=== PATIENT | female | born 1985 | race Caucasian/White ===

== ENCOUNTER 2016-10-09 23:30 | Inpatient (IN) ==
[2016-10-10] LABS: URINE SOURCE VOIDED
[2016-10-10 00:06] LABS: BILIRUBIN URINE NEGATIVE (NEGATIVE); BLOOD URINE 2+ (NEGATIVE); CLARITY HAZY (CLEAR); COLOR YELLOW; GLUCOSE URINE NEGATIVE (NEGATIVE); LEUKOCYTES URINE 1+ (NEGATIVE); NITRITE URINE NEGATIVE (NEGATIVE); PROTEIN URINE NEGATIVE (NEGATIVE); UROBILINOGEN URINE 1+(1 mg/dL)
[2016-10-10] MEDS ORDERED: STADOL IV ONE (00:13)
[2016-10-10] MEDS ORDERED: KEFZOL 1 GM/D5W 50 ML IV PRN (01:20)
[2016-10-10] MEDS ORDERED: REGLAN IV ONE (01:22)
[2016-10-10] MEDS ORDERED: SODIUM CHLORIDE 0.9% INJ ONE (01:22)
[2016-10-10] MEDS ORDERED: PEPCID IV ONE (01:22)
[2016-10-10] MEDS ORDERED: BICITRA PO ONE (01:22)
[2016-10-10] MEDS ORDERED: LR 1,000 ML IV SCH (01:30)
[2016-10-10 01:32] LABS: MANUAL DIFF NEEDED? NO
[2016-10-10 01:46] LABS: BASO% 0.2 % (0.0-0.8); EOS# 0.06 X1000 (0.0-0.7); EOS% 0.6 % (0.0-10.0); HEMATOCRIT 31.1 % (37.0-47.0); IMM GRAN# 0.07 X1000 (0.0-0.04); IMM GRAN% 0.8 % (0.0-0.5); LYMPH# 1.92 X1000 (1.2-3.4); LYMPH% 20.6 % (20.5-51.1); MCH 26.3 PG (27-31); MCHC 32.2 g/dL (33-37); MCV 81.8 FL (81-99); MONO# 0.48 X1000 (0.11-0.59); MONO% 5.1 % (1.7-9.3); MPV 9.7 FL (7.4-10.4); NEUT% 72.7 % (42.2-75.2); PLT 191 X1000 (130-400)
[2016-10-10] MEDS ORDERED: PITOCIN ONE ×3 (02:01→16:29)
[2016-10-10] MEDS ORDERED: FENTANYL ONE (02:01)
[2016-10-10] MEDS ORDERED: DURAMORPH ONE (02:02)
[2016-10-10 02:14] LABS: UR AMPHETAMINES QUAL NONE DETECTED (NONE DETECT); UR BARBITUATES QUAL NONE DETECTED (NONE DETECT); UR BENZODIAZEPIN QUAL NONE DETECTED (NONE DETECT); UR CANNABINOIDS QUAL NONE DETECTED (NONE DETECT); UR COCAINE QUAL NONE DETECTED (NONE DETECT); UR MDMA QUAL NONE DETECTED (NONE DETECT); UR METHADONE QUAL NONE DETECTED (NONE DETECT); UR METHAMPHETAMINE QUAL NONE DETECTED (NONE DETECT); UR OPIATES QUAL NONE DETECTED (NONE DETECT); UR OXYCODONE QUAL NONE DETECTED (NONE DETECT); UR PCP QUAL NONE DETECTED (NONE DETECT); UR TCA QUAL NONE DETECTED (NONE DETECT)
[2016-10-10] MEDS ORDERED: DEMEROL IM PRN (03:00)
[2016-10-10] MEDS ORDERED: M-M-R II VACCINE SUBQ ONE (03:00)
[2016-10-10] MEDS ORDERED: BOOSTRIX VACCINE IM ONE (03:00)
[2016-10-10] MEDS ORDERED: HYDROXYZINE PO PRN (03:00)
[2016-10-10] MEDS ORDERED: DULCOLAX PR PRN (03:00)
[2016-10-10] MEDS ORDERED: PITOCIN 10 UNITS/LR 1,000 ML IV SCH (03:00)
[2016-10-10] MEDS ORDERED: MYLICON PO PRN (03:00)
[2016-10-10] MEDS ORDERED: HYDROXYZINE IM PRN (03:00)
[2016-10-10] MEDS ORDERED: PITOCIN 20 UNITS/LR 1,000 ML IV ONE (03:00)
[2016-10-10] MEDS ORDERED: AMBIEN PO PRN (03:00)
[2016-10-10] MEDS ORDERED: CYTOTEC PO PRN (03:00)
[2016-10-10] MEDS ORDERED: DEMEROL PO PRN ×2 (03:00)
[2016-10-10] MEDS ORDERED: PHENERGAN IM PRN (03:00)
[2016-10-10] MEDS ORDERED: PITOCIN IM PRN (03:00)
[2016-10-10] MEDS ORDERED: NORCO-5 PO PRN (03:00)
[2016-10-10] MEDS ORDERED: EPHEDRINE ONE (03:15)
[2016-10-10] MEDS ORDERED: TORADOL ONE (03:16)
[2016-10-10] MEDS ORDERED: PHENERGAN ONE (03:17)
[2016-10-10] MEDS ORDERED: DILAUDID IV PRN (03:49)
[2016-10-10] MEDS ORDERED: ZOFRAN IV PRN ×2 (03:49)
[2016-10-10] MEDS ORDERED: BENADRYL IV PRN (03:49)
[2016-10-10] MEDS ORDERED: NARCAN INJ PRN (03:49)
[2016-10-10] MEDS ORDERED: ZOFRAN ODT PO PRN (03:49)
[2016-10-10] MEDS: NORCO-10 PO PRN ×5 (07:56→20:55)
[2016-10-10] MEDS: MYLICON PO SCH ×5 (07:56→20:55)
[2016-10-10] MEDS: PERICOLACE PO SCH (20:54)
[2016-10-11] MEDS: NORCO-10 PO PRN ×8 (00:39→23:01)
[2016-10-11] MEDS ORDERED: LR 1,000 ML IV SCH (03:00)
[2016-10-11 06:42] LABS: HEMATOCRIT 23.4 % (37.0-47.0); HEMOGLOBIN 7.1 g/dL (12.0-16.0); MCH 25.3 PG (27-31); MCHC 30.3 g/dL (33-37); MCV 83.3 FL (81-99); MPV 9.6 FL (7.4-10.4); RBC 2.81 XMIL (4.2-5.4)
[2016-10-11] MEDS: MYLICON PO SCH ×5 (09:02→20:27)
[2016-10-11] MEDS ORDERED: NEOSPORIN OINTMENT PACKET TOP ONE (12:29)
[2016-10-11] MEDS: PERICOLACE PO SCH (20:27)
[2016-10-12] MEDS: NORCO-10 PO PRN ×3 (02:04→08:08)
[2016-10-12 08:07] VITALS: BP 117/68
[2016-10-12] MEDS: MYLICON PO SCH (08:08)
--- NOTE | 2016-10-12 18:25 | DISCHARGE SUMMARY ---
ADMISSION DATE: 10/09/2016 DISCHARGE DATE: 10/12/2016 ADMITTING DIAGNOSES: 1. 38-1/2-week , in labor. 2. Uterine fibroids felt to be impending delivery. 3. Desires sterilization. PRINCIPAL DIAGNOSES: 1. 38-1/2-week , in labor. 2. Uterine fibroids felt to be impending delivery. 3. Desires sterilization. PRINCIPAL PROCEDURE: Primary and bilateral fimbriectomy. SUMMARY: Ailyn Wallace is a 31-year-old, 4, para 2, at 38 weeks gestation. She presented to Labor and Delivery in active labor. She was 3 cm dilated. She had been scheduled for a delivery due to a 10 cm fibroid that was felt to be impending vaginal delivery. She also desired tubal sterilization. She, therefore, underwent a primary low transverse section and bilateral fimbriectomy by Dr. Hurtado. A male infant who weighed 8 pounds 1 ounce with Apgars of 9 at 1 minute and 10 at 5 minutes was delivered and a bilateral fimbriectomy was performed. There were no intraoperative complications. Following delivery the patient has done well. She has remained afebrile. All vital signs are stable. She did have an admission hemoglobin and hematocrit of 10/31.1 with discharge hemoglobin and hematocrit being 7.1/23.4. On the day of discharge cardiac and pulmonary examinations normal. Bowel and bladder functions was normal. Her skin incision was clean and dry. She was having no signs of infection. Mrs. Wallace will be discharged today. We will see her back in the office in a week. Routine discharge instructions, activity limitations, and precautions were given. She has been given a prescription for Percocet 10 for pain. She states an allergy to Toradol but it is only a mild rash so we will try Motrin to see if it will help the pain also. We will see her next week in the office. She will call sooner if needed.
--- NOTE | 2016-10-22 15:01 | OPERATIVE NOTE ---
PROCEDURE DATE: PREOPERATIVE DIAGNOSES: 1. Intrauterine at 38 weeks and 2 days. 2. Active labor. 3. History of uterine fibroids, requesting primary abdominal delivery. POSTOPERATIVE DIAGNOSES: 1. Intrauterine at 38 weeks and 2 days. 2. Active labor. 3. History of uterine fibroids, requesting primary abdominal delivery. PROCEDURE PERFORMED: SURGEON: Leeann Hurtado MD GRAILS WEB APPLICATION DEVELOPER: None. ANESTHESIA: Spinal. ESTIMATED BLOOD LOSS: 800 mL. COMPLICATIONS: None. COUNTS: Correct x2. FINDINGS: Viable male infant, weighing 8 pounds 1 ounce. Grossly normal-appearing bilateral fallopian tubes and ovaries. Myometrial fibroid, creating enlarged uterus. INDICATIONS FOR PROCEDURE: The patient is a 31-year-old, 4, para 2-0-1-2, with intrauterine at 38 weeks 2 days. The patient presented to labor and delivery complaining of regular contractions. The patient was noted to have cervical dilation to 7 cm, so diagnosed in active labor. Patient with a history of uterine fibroids and requesting primary section, which she was counseled on in clinic. Risks, benefits, and alternatives were discussed with the patient and she desires to proceed. PROCEDURE IN DETAIL: After proper informed consent was obtained, the patient was taken to the operating room and placed in dorsal supine position with adequate spinal anesthesia. The abdomen was prepped and draped in normal sterile fashion for abdominal surgery. After a proper time-out was performed, a low transverse incision was made on the skin using a scalpel. This was carried down to the underlying fascia which was scored in the midline. The fascial incision was extended laterally and cephalic using Laura scissors. The inferior aspect of the fascial defect was grasped with a Jose A clamp and dissected off the underlying rectus abdominis muscle. Similar was carried out for the superior aspect of the fascial defect. The muscles were bluntly in the midline. The peritoneum was entered bluntly and stretched using the tobacco stripping machine operator's hand. A bladder blade was placed to protect the bladder. A low transverse incision was made on the uterus. This was stretched using the tobacco stripping machine operator's hand. The infant was delivered in the vertex presentation. The cord was doubly clamped and cut and the was handed off to the awaiting pediatric staff. The placenta was then delivered via fundal massage. The uterus was exteriorized and cleared free of all clot and debris. The hysterotomy was reapproximated using #1 chromic in a running, locking fashion with hemostasis noted. Attention was then turned to bilateral tubal ligation. The right fallopian tube was grasped with a Braddock clamp. The fimbria was elevated and fimbriectomy was performed after double suture ligating the tubal segment. Hemostasis was noted. Similar was carried out to the left fallopian tube with hemostasis noted. The uterus was returned to the abdomen. The hysterotomy was reinspected and noted to be hemostatic. The peritoneum was then reapproximated using #1 chromic in a running, continuous fashion. The muscles were inspected and noted to be hemostatic. The fascia was then reapproximated using #1 Vicryl in a running, continuous fashion. The subcutaneous tissue was made hemostatic using Bovie electrocautery and the subcutaneous tissue was reapproximated using 3-0 chromic in a running, continuous fashion. The skin was reapproximated using 4-0 Monocryl in a subcuticular fashion. The patient tolerated the procedure well and was transferred to recovery in stable condition.
== END 2016-10-12 12:05 | disposition home or self-care (01) | DRG 766 ==
LOC: P.OPLD 23:30 → P.LD 23:31 → P.OPLD 10-10 01:18 → P.LD 10-10 01:19 → P.WC 10-10 14:25
PROVIDERS: ADMIT Obstetrics & Gynecology; ATTEND Obstetrics & Gynecology
PROC: 0UB70ZZ Excision of Bilateral Fallopian Tubes, Open Approach (ICD-10-PCS; 2016-10-10)
PROC: 10D00Z1 Extraction of Products of Conception, Low, Open Approach (ICD-10-PCS; principal; 2016-10-10 02:00)
DX: O75.82 Onset (spontaneous) of labor after 37 completed weeks of gestation but before 39 completed weeks gestation, with delivery by (planned) cesarean section (principal); D25.1 Intramural leiomyoma of uterus; Z37.0 Single live birth; O65.5 Obstructed labor due to abnormality of maternal pelvic organs; O34.13 Maternal care for benign tumor of corpus uteri, third trimester; Z3A.38 38 weeks gestation of pregnancy; Z30.2 Encounter for sterilization
CPT/HCPCS: 59025; 80305; 81003; 85025; 85027; 86592; 86850; 86900; 86901; J0595; J0690; J1170; J1885; J2274; J2405; J2550; J2590; J2765; J3010; J7120; S0028

== ENCOUNTER 2016-10-21 17:08 | Emergency (ER) ==
[2016-10-21 17:15] VITALS: BP 132/72
--- NOTE | 2016-10-21 18:17 | PROVIDER DOCUMENTATION ---
HPI-General Adult <Marcos Campos Musa - Last Filed: 10/21/16 18:18> - General Source: patient - History of Present Illness -Gen Adult Nature of Presenting Problems: 31 year old F presents to the ED with a cc of pain secondary to 11 days ago. PT states that she called her OBGYN and she was told to take Motrin and Tylenol. PT states that she is still having a lot of pain. Location of Pain/Injury: reports: abdomen Pain Radiation: reports: no radiation Quality of Pain: reports: aching Severity: reports: mild Onset/Duration: reports: other (11 days) Timing: reports: still present Modifying Factors: improves with: nothing Associated Symptoms: reports: denies symptoms Similar Symptoms Previously?: No Recently seen or treated by another doctor?: No <Christi Perrin - Last Filed: 10/21/16 18:29> - General Chief Complaint: Post Op Complaint Stated Complaint: POST OP COMPLAINT/ Time Seen by Provider: 10/21/16 18:10 Allergies/Adverse Reactions: Patient Allergies Allergy/AdvReac Type Severity Reaction Status Date / Time ketorolac tromethamine * Allergy Severe RASH Verified 09/19/16 10:47 [From Toradol] Latex, Natural Rubber Allergy Severe RASH Verified 09/19/16 10:48 ibuprofen Allergy HIVES Verified 10/10/16 19:06 Home Medications: Home Medication List Medication Instructions Recorded Confirmed Last Taken Type Omeprazole [Prilosec] 20 mg PO DAILY 09/19/16 10/10/16 10/07/16 07:30 History Hydrocodone/Acetaminophen [Retsof 1 cap PO Q4H PRN 10/08/16 10/10/16 2 Days Ago History 5-325 Tablet] Ibuprofen [Motrin] 800 mg PO Q8H PRN PRN #30 tablet 10/12/16 Unknown Rx Oxycodone HCl/Acetaminophen 1 each PO Q4H PRN #30 tablet 10/12/16 Unknown Rx [Percocet 10-325 mg Tablet] Simethicone Chew [Mylicon] 80 mg PO PC + HS #60 tablet 10/12/16 Unknown Rx Oxycodone HCl/Acetaminophen 1 each PO Q4H PRN #12 tablet 10/21/16 Unknown Rx [Percocet 5-325 mg Tablet] Review of Systems - Adult - REVIEW OF SYSTEMS - ADULT Constitutional: denies: chills, fever Eyes: reports: no symptoms reported Ears, Nose, Mouth & Throat: reports: no symptoms reported Cardiovascular: reports: no symptoms reported Respiratory: reports: no symptoms reported Gastrointestinal: reports: abdominal pain. denies: nausea, vomiting Genitourinary: denies: dysuria, discharge, hematuria Musculoskeletal: denies: muscle aches, muscle weakness Integumentary: reports: no symptoms reported Neurological: reports: no symptoms reported Psychiatric: reports: no symptoms reported Endocrine: reports: no symptoms reported Hematologic/Lymphatic: reports: no symptoms reported Allergic/Immunologic: reports: no symptoms reported All Other Systems: Reviewed and Negative <Christi Perrin - Last Filed: 10/21/16 18:29> Past History - Adult - PAST MEDICAL HISTORY-ADULT Review of Records: reports: Nursing Assessment Review, Medications Reviewed Major Childhood Illnesses: reports: denies history Cardiovascular: reports: denies history Respiratory: reports: denies history Gastrointestinal: reports: GERD Obstetrical/Gynecological: reports: denies history Genitourinary: reports: denies history Musculoskeletal: reports: denies history Neurological: reports: denies history Endocrine/Immune: reports: denies history Other Conditions: reports: denies history - PRIOR SURGERIES/PROCEDURES Surgical/Procedure History: reports: cholecystectomy, other (laproscopic gallbladder removal, D&C) - IMMUNIZATION STATUS Childhood Immunizations: See Nurse Assessment Flu Vaccine: See Nurse Assessment - FAMILY HISTORY Family History: reviewed, not pertinent - SOCIAL HISTORY Smoking: non-smoker Substance Use: none/never Alcohol Use Frequency: occasionally <Christi Perrin - Last Filed: 10/21/16 18:29> Physical Exam-General - PHYSICAL EXAM-ADULT Initial Vital Signs Reviewed: Yes - CONSTITUTIONAL General Appearance: appears well, alert, no apparent distress - RESPIRATORY Respiratory: chest non-tender, lungs clear, normal breath sounds - CARDIOVASCULAR Cardiovascular: normal peripheral pulses, regular rate, rhythm, no edema - GASTROINTESTINAL (ABDOMEN) Abdominal Exam: non tender, tenderness (lower ABD), other (healing surgical wound to lower ABD) - MUSCULOSKELETAL Extremity: normal inspection - SKIN Integumentary: normal color, normal turgor, warm/dry - PSYCHIATRIC Psych/Mental Status: normal mood/affect, normal thought content, normal thought process, oriented x 3 <Christi Perrin - Last Filed: 10/21/16 18:29> Progress - PLAN OF CARE/RESULTS Progress/Plan/Lab Results: plan of care: medications Orders Category Date Time Status Oxycodone/APAP 5 mg/325 mg [Percocet-5] Med 10/21/16 18:20 Discontinued 2 each PO NOW ONE Vital Signs - 24 hr 10/21/16 17:12 Temperature 98 F Pulse Rate 79 Respiratory 18 Rate Blood Pressure 132/72 O2 Sat by Pulse 98 Oximetry Pt given results and will be d/c home w/ rx to follow up with PCP. Pt verbally understood instructions. PT remained clinically stable throughout the course of the ED stay and will return if symptoms worsen. <Christi Perrin - Last Filed: 10/21/16 18:29> Departure - Departure Time of Disposition Order: 06:20 Certified Medical Emergency: Emergent <Marcos Campos - Last Filed: 10/21/16 18:18> <Christi Perrin - Last Filed: 10/21/16 18:29> - Departure DIAGNOSIS: Postoperative abdominal pain Disposition: HOME 01 Condition: Stable Additional Instructions: followup with your OB doctor tomorrow for further instructions Prescriptions: Oxycodone HCl/Acetaminophen [Percocet 5-325 mg Tablet] 1 each PO Q4H PRN #12 tablet PRN Reason: Pain Referrals: Enrique Bone MD [STAFF PHYSICIAN] - Forms: Return to School/Parent Work Instructions: Acetaminophen; Oxycodone tablets, Abdominal Pain, Adult, Easy-to- Read Attestation - Scribe Verification/Attestation Scribe:: Christi Perrin Acting as Scribe for:: Marcos Campos Scribe documention review:: This chart was documented by a scribe and accurately reflects the service the provider performed and the decisions made by the provider. <Christi Perrin - Last Filed: 10/21/16 18:29> Physician Attestation - Physician Attestation I, the provider, attest to the following statement:: Marcos Campos Physician documentation Attestation:: This documentation recorded by the scribe accurately reflects the service I personally performed and the decisions made by me. <Christi Perrin - Last Filed: 10/21/16 18:29>
[2016-10-21] MEDS ORDERED: PERCOCET-5 PO ONE (18:20)
== END 2016-10-21 18:40 | disposition home or self-care (01) ==
LOC: P.ED 17:08
DX: O90.89 Other complications of the puerperium, not elsewhere classified (principal); G89.18 Other acute postprocedural pain; R10.9 Unspecified abdominal pain; R10.819 Abdominal tenderness, unspecified site; K21.9 Gastro-esophageal reflux disease without esophagitis; Z98.890 Other specified postprocedural states
CPT/HCPCS: 99282

== ENCOUNTER 2016-11-02 22:31 | Emergency (ER) ==
[2016-11-02] MEDS ORDERED: NORCO-7.5 PO ONE (23:15)
[2016-11-02] MEDS ORDERED: CLINDAMYCIN IM ONE (23:15)
--- NOTE | 2016-11-02 23:15 | PROVIDER DOCUMENTATION ---
HPI-Rash/Wound/ReCheck <Marcos Hylton - Last Filed: 11/02/16 23:36> - General Source: patient - History of Present Illness-Dermatology Location: reports: lower extremity (LEFT INNER GROIN) Quality: reports: burning, painful Severity: reports: moderate Onset/Duration: reports: 2 days ago Timing: reports: still present Context/Associated Symptoms: reports: spider bite (POSS), unknown bite/sting, abscess, tender area Identifiable cause?: No Exposure: reports: unknown cause Locality of Occurance: Home Similar Symptoms Previously?: No Recently seen or treated by another doctor?: No <Ariana Baird - Last Filed: 11/03/16 00:36> - General Chief Complaint: Insect Bite/Sting Stated Complaint: INSECT BITE/STING Time Seen by Provider: 11/02/16 22:51 Allergies/Adverse Reactions: Allergies Allergy/AdvReac Type Severity Reaction Status Date / Time ketorolac tromethamine * Allergy Severe RASH Verified 11/02/16 22:46 [From Toradol] Latex, Natural Rubber Allergy Severe RASH Verified 11/02/16 22:46 ibuprofen Allergy HIVES Verified 11/02/16 22:46 Home Medications: Home Medication List Medication Instructions Recorded Confirmed Last Taken Type Sulfamethoxazole/Trimethoprim 1 each PO BID #20 tablet 11/02/16 Unknown Rx [Bactrim Ds Tablet] Tramadol [Ultram] 50 mg PO Q8HR #10 tablet 11/02/16 Unknown Rx - History of Present Illness-Dermatology Nature of Presenting Problem: PT IS A 31YOF PRESENTING TO THE ED C/O ABSCESS ON INNER LEFT GROIN. PT STATES SHE THOUGHT SHE MAY HAVE BEEN BITTEN BY A SPIDER. THE ABSCESS CAME UP 2 DAYS AGO , NO REDNESS OR HEAT TO TOUCH. PT STATES IT IS VERY PAINFUL BUT THE AREA IS A SOLID MASS UNDER THE SKIN AND IS NOT ABLE TO BE I&D AT THIS TIME. NO FEVER OR OTHER COMPLAINTS NOTED (Ariana Baird) Review of Systems - Adult - REVIEW OF SYSTEMS - ADULT Constitutional: reports: no symptoms reported Eyes: reports: no symptoms reported Ears, Nose, Mouth & Throat: reports: no symptoms reported Cardiovascular: reports: no symptoms reported Respiratory: reports: no symptoms reported Gastrointestinal: reports: no symptoms reported Genitourinary: reports: no symptoms reported Musculoskeletal: reports: no symptoms reported Integumentary: reports: see HPI, other (POSS ABSCESS LEFT INNER GROIN). denies : itching, rash Neurological: reports: no symptoms reported Psychiatric: reports: no symptoms reported Endocrine: reports: no symptoms reported Hematologic/Lymphatic: reports: no symptoms reported Allergic/Immunologic: reports: no symptoms reported All Other Systems: Reviewed and Negative <Ariana Baird - Last Filed: 11/03/16 00:36> Past History - Adult - PAST MEDICAL HISTORY-ADULT Major Childhood Illnesses: reports: denies history Cardiovascular: reports: denies history Respiratory: reports: denies history Gastrointestinal: reports: GERD Obstetrical/Gynecological: reports: denies history Genitourinary: reports: denies history Musculoskeletal: reports: denies history Neurological: reports: denies history Endocrine/Immune: reports: denies history Other Conditions: reports: denies history - PRIOR SURGERIES/PROCEDURES Surgical/Procedure History: reports: cholecystectomy, other (laproscopic gallbladder removal, D&C) - IMMUNIZATION STATUS Childhood Immunizations: See Nurse Assessment Flu Vaccine: See Nurse Assessment - FAMILY HISTORY Family History: reviewed, not pertinent <Marcos Hylton - Last Filed: 11/02/16 23:36> - PAST MEDICAL HISTORY-ADULT Review of Records: reports: Old Records Reviewed, Nursing Assessment Review, Medications Reviewed, Social history reviewed & non-contributory. Major Childhood Illnesses: reports: denies history Cardiovascular: reports: denies history Respiratory: reports: denies history Gastrointestinal: reports: denies history Obstetrical/Gynecological: reports: denies history Genitourinary: reports: denies history Musculoskeletal: reports: denies history Neurological: reports: denies history Endocrine/Immune: reports: denies history Other Conditions: reports: denies history - IMMUNIZATION STATUS Childhood Immunizations: See Nurse Assessment Flu Vaccine: See Nurse Assessment - FAMILY HISTORY Family History: reviewed, not pertinent - SOCIAL HISTORY Smoking: denies, non-smoker Substance Use: none/never, alcohol Alcohol Use Frequency: occasionally Number of drinks per typical drinking period:: 3-4 drinks Living Situation: family <Ariana Baird - Last Filed: 11/03/16 00:36> Physical Exam-General - PHYSICAL EXAM-ADULT Initial Vital Signs Reviewed: Yes - CONSTITUTIONAL General Appearance: appears well, alert, moderate distress, anxious - EYES Eyes: PERRL/EOMI, pink conjunctivae, fundi clear, no AV nicking - HEAD, EARS, NOSE, MOUTH & THROAT HENMT: normocephalic/atraumatic, moist mucous membranes, normal ENT inspection, TMs normal, pharynx normal - NECK Neck: non-tender, full range of motion, supple, normal inspection - RESPIRATORY Respiratory: chest non-tender, lungs clear, normal breath sounds, no pleuratic chest pain, no respiratory distress, no accessory muscle use - CARDIOVASCULAR Cardiovascular: normal peripheral pulses, regular rate, rhythm, no edema, no gallop, no JVD, no murmur - GASTROINTESTINAL (ABDOMEN) Abdominal Exam: normal bowel sounds, non tender, soft, no organomegaly, no pulsatile mass - LYMPHATIC Lymphatic: no adenopathy - MUSCULOSKELETAL Back Exam: normal inspection, no CVA tenderness, no vertebral tenderness Extremity: normal range of motion, non-tender, normal gait, normal inspection, no pedal edema, no calf tenderness, normal capillary refill, pelvis stable - SKIN Integumentary: normal color, normal turgor, warm/dry, tenderness (HARD ABSCESS UNDER SKIN ON INNER LEFT GROIN AREA) - NEUROLOGIC Neurologic: barrel assembly inspector II-XII nml as tested, grossly normal, no motor/sensory deficits - PSYCHIATRIC Psych/Mental Status: normal mood/affect, normal thought content, normal thought process, oriented x 3 <Ariana Baird - Last Filed: 11/03/16 00:36> Progress <Marcos Hylton - Last Filed: 11/02/16 23:36> <Ariana Baird - Last Filed: 11/03/16 00:36> - PLAN OF CARE/RESULTS Progress/Plan/Lab Results: Orders Category Date Time Status Clindamycin Med 11/02/16 23:15 Discontinued 600 mg IM NOW ONE Hydrocodone/APAP 7.5 mg/325 mg [[place]-7.5] Med 11/02/16 23:15 Discontinued 1 each PO NOW ONE Vital Signs - 24 hr 11/02/16 11/02/16 22:42 23:39 Temperature 98.3 F 98.5 F Pulse Rate 77 84 Respiratory 18 19 Rate Blood Pressure 106/60 110/71 O2 Sat by Pulse 98 98 Oximetry (Ariana Baird) Departure - Departure Time of Disposition Order: 23:13 Certified Medical Emergency: Emergent <Marcos Hylton - Last Filed: 11/02/16 23:36> - Departure Time of Disposition Order: 00:36 Certified Medical Emergency: Emergent <Ariana Baird - Last Filed: 11/03/16 00:36> - Departure DIAGNOSIS: Abscess Disposition: HOME 01 Condition: Stable Additional Instructions: ED Follow Up Instructions: You have been treated by a care provider in the Emergency Department. These instructions are being provided to you so you can have an understanding of how to care for yourself upon discharge. Upon discharge from the Emergency Department, you are responsible for making arrangements for follow-up care by a physician of your choice. Take all prescribed medications as directed. Return to the Emergency Department immediately for any new or worsening symptoms. You may call the Physician Referral phone number at [phone] to obtain a list of Physicians who are taking new patients. Prescriptions: Sulfamethoxazole/Trimethoprim [Bactrim Ds Tablet] 1 each PO BID #20 tablet Tramadol [Ultram] 50 mg PO Q8HR #10 tablet Referrals: Enrique Bone MD [STAFF PHYSICIAN] - None,PCP [Primary Care Provider] - Forms: Return to School/Parent Work Instructions: Abscess, [id number], Sulfamethoxazole; Trimethoprim, [id number] tablets Attestation - Physician/ BEATRIZ Attestation Patient care was provided by Advanced Practice Provider:: Yes Advanced Practice Provider:: Marcos Hylton Advanced Practice Provider documentation review:: The Mid-level provider documentation, treatment plan and medical decision making was reviewed by the physician who agrees with all treatment and medical decision making by the [facility]. <Marcos Hylton - Last Filed: 11/02/16 23:36> - Scribe Verification/Attestation Scribe:: Ariana Baird Acting as Scribe for:: Marcos Hylton Scribe documention review:: This chart was documented by a scribe and accurately reflects the service the provider performed and the decisions made by the provider. <Araina Baird - Last Filed: 11/03/16 00:36> Physician Attestation - Physician Attestation I, the provider, attest to the following statement:: Iftikhar Pryor Physician documentation Attestation:: This documentation recorded by the scribe accurately reflects the service I personally performed and the decisions made by me. <Ariana Baird - Last Filed: 11/03/16 00:36>
[2016-11-02 23:42] VITALS: BP 110/71
== END 2016-11-02 23:42 | disposition home or self-care (01) ==
LOC: P.ED 22:31
DX: L02.214 Cutaneous abscess of groin (principal); R10.32 Left lower quadrant pain; R19.04 Left lower quadrant abdominal swelling, mass and lump
CPT/HCPCS: 96372; S0077